=== PATIENT | male | born 1965 | race African-American/Black ===

== ENCOUNTER 2017-07-07 15:28 | Emergency (ER) | payer SELFPAY ==
[2017-07-07 17:55] LABS: ABSOLUTE BASOPHILS # (AUTO) 0.1 10^3/uL (0.0-0.2); ABSOLUTE EOSINOPHILS # (AUTO) 0.1 10^3/uL (0.0-0.6); ABSOLUTE LYMPHOCYTES (AUTO) 1.8 10^3/uL (0.5-4.7); ABSOLUTE MONOCYTES (AUTO) 0.4 10^3/uL (0.1-1.4); ABSOLUTE NEUT (AUTO) 6.9 10^3/uL (1.7-8.2); BASOPHILS % (AUTO) 1.5 % (0-2); EOSINOPHILS % (AUTO) 0.6 % (0-6); HEMATOCRIT 41.4 % (37.9-51.0); LYMPHOCYTES % (AUTO) 19.4 % (13-45); MEAN CORPUSCULAR HEMOGLOBIN 31.9 pg (27.0-33.4); MEAN CORPUSCULAR HGB CONC 33.8 g/dL (32.0-36.0); MEAN CORPUSCULAR VOLUME 94 fl (80-97); MONOCYTES % (AUTO) 4.6 % (3-13); PLATELET COUNT 353 10^3/uL (150-450); RED BLOOD COUNT 4.39 10^6/uL (4.35-5.55); RED CELL DISTRIBUTION WIDTH 13.4 % (11.5-14.0); SEGMENTED NEUTROPHILS % (AUTO) 73.9 % (42-78); TOTAL CELLS COUNTED % (AUTO) 100 %; WHITE BLOOD COUNT 9.3 10^3/uL (4.0-10.5)
[2017-07-07 18:13] LABS: BLOOD UREA NITROGEN 9 mg/dL (7-20); CALCIUM 10.2 mg/dL (8.4-10.2); GLUCOSE 83 mg/dL (75-110)
[2017-07-07 18:14] LABS: ALANINE AMINOTRANSFERASE 25 U/L (21-72); ALBUMIN 4.5 g/dL (3.5-5.0); ALKALINE PHOSPHATASE 66 U/L (38-126); ANION GAP 11 (5-19); ASPARTATE AMINO TRANSFERASE 28 U/L (17-59); BILIRUBIN,DIRECT 0.4 mg/dL (0.0-0.4); BILIRUBIN,TOTAL 0.5 mg/dL (0.2-1.3); CARBON DIOXIDE 25 mmol/L (22-30); CHLORIDE 108 mmol/L (98-107); LIPASE 158.5 U/L (23-300); POTASSIUM 4.4 mmol/L (3.6-5.0); SODIUM 143.6 mmol/L (137-145); TOTAL PROTEIN 7.7 g/dL (6.3-8.2)
--- NOTE | 2017-07-07 18:48 | ER Document Report ---
ED General - General Chief Complaint: Abdominal Pain Stated Complaint: ABDOMINAL PAIN Time Seen by Provider: 07/07/17 17:26 Mode of Arrival: Ambulatory Information source: Patient Notes: Patient states for 2 weeks he has had "growling" in the center of his abdomen after he is done eating. It is worse with eating and better without eating. It is intermittent. It is mild to moderate. He states he is concerned that he may have an ulcer. He states he does drink and smoke daily. No vomiting no diarrhea. No rashes. The pain does not radiate. TRAVEL OUTSIDE OF THE [place] IN LAST 30 DAYS: No - Related Data Allergies/Adverse Reactions: No Known Allergies Allergy (Verified 07/07/17 17:12) Past Medical History - General Information source: Patient - Social History Smoking Status: Current Every Day Smoker Chew tobacco use (# tins/day): No Frequency of alcohol use: Heavy Drug Abuse: None Family History: Reviewed & Not Pertinent Patient has suicidal ideation: No Patient has homicidal ideation: No Renal/ Medical History: Denies: Hx Peritoneal Dialysis Past Surgical History: Reports: Hx Orthopedic Surgery - left shoulder Review of Systems - Review of Systems Constitutional: denies: Chills, Fever Cardiovascular: denies: Chest pain, Palpitations Respiratory: denies: Cough, Short of breath -: Yes All other systems reviewed and negative Physical Exam - Vital signs Vitals: Temp Pulse Resp BP Pulse Ox 98.7 F 92 18 117/70 98 07/07/17 15:52 07/07/17 15:52 07/07/17 15:52 07/07/17 15:52 07/07/17 15:52 Interpretation: Normal - General General appearance: Appears well, Alert - HEENT Head: Normocephalic, Atraumatic Eyes: Normal Pupils: PERRL - Respiratory Respiratory status: No respiratory distress Chest status: Nontender Breath sounds: Normal Chest palpation: Normal - Cardiovascular Rhythm: Regular Heart sounds: Normal auscultation Murmur: No - Abdominal Inspection: Normal Distension: No distension Bowel sounds: Normal Tenderness: Tender, Other - Patient has mild epigastric tenderness to palpation. No surgical abdominal signs. Organomegaly: No organomegaly - Back Back: Normal, Nontender - Extremities General upper extremity: Normal inspection, Nontender, Normal color, Normal ROM , Normal temperature General lower extremity: Normal inspection, Nontender, Normal color, Normal ROM , Normal temperature, Normal weight bearing. No: Pamela's sign - Neurological Neuro grossly intact: Yes Cognition: Normal Orientation: AAOx4 Ora Coma Scale Eye Opening: Spontaneous [place] Coma Scale Verbal: Oriented [place] Coma Scale Motor: Obeys Commands Ora Coma Scale Total: 15 Speech: Normal Motor strength normal: LUE, RUE, LLE, RLE Sensory: Normal - Psychological Associated symptoms: Normal affect, Normal mood - Skin Skin Temperature: Warm Skin Moisture: Dry Skin Color: Normal Course - Vital Signs Vital signs: Temp Pulse Resp BP Pulse Ox 98.7 F 92 18 117/70 98 07/07/17 15:52 07/07/17 15:52 07/07/17 15:52 07/07/17 15:52 07/07/17 15:52 - Laboratory Result Diagrams: 07/07/17 17:40 07/07/17 17:40 Laboratory results interpreted by me: 07/07/17 17:40 Chloride 108 H Discharge - Discharge Clinical Impression: Epigastric pain Condition: Stable Disposition: HOME, SELF-CARE Instructions: Abdominal Pain ([facility]), Reflux Disease (GERD) ([facility]), Chronic Alcoholism ([facility]) Additional Instructions: Call your primary doctor as soon as possible to arrange follow-up Prescriptions: Sucralfate [Carafate Susp 1 Gm/10 Ml Udcup] 1 gm PO QID 14 Days udc
[2017-07-07 19:43] VITALS: BP 142/90
== END 2017-07-07 19:47 | disposition home or self-care (01) ==
LOC: ER 15:28
DX: R10.13 Epigastric pain (principal); F17.200 Nicotine dependence, unspecified, uncomplicated
CPT/HCPCS: 36415; 80053; 83690; 85025; 99284

== ENCOUNTER 2017-09-07 22:58 | Emergency (ER) | payer SELFPAY ==
[2017-09-08] MEDS ORDERED: DIPH/PERTUSS(ACELL)/TETANUS VAC/PF 0.5 ML SYR (>=10YO) IM ONE (00:59)
[2017-09-08] MEDS ORDERED: LIDOCAINE 1% INJ-PF (10 MG/ML) 30 ML SDV INJ ONE ×2 (01:00→06:46)
--- NOTE | 2017-09-08 01:53 | RADIOLOGY REPORT (SQ) ---
EXAM DESCRIPTION: CT MAXILLOFACIAL WITHOUT IV CONTRAST CLINICAL HISTORY: 51 years Male, fall with left side facial injuries Comparison: None. Technique: No contrast. Coronal and sagittal reformat. This exam was performed according to our departmental dose-optimization program, which includes automated exposure control, adjustment of the mA and/or kV according to patient size and/or use of iterative reconstruction technique.[facility]: Dose Right [facility]: CareDose [facility]: Dose Right [facility]: Teradose 4D [facility]: Morizon LIMITATIONS: None. Findings: Small right mucosal thickening. Facial bones including orbits, nasal bone, paranasal sinuses, and pterygoid plates appear otherwise intact. Patent ostiomeatal units. Unremarkable partially visualized inferior cranium, temporal bone, and upper neck. IMPRESSION: No acute findings.
--- NOTE | 2017-09-08 01:54 | RADIOLOGY REPORT (SQ) ---
EXAM DESCRIPTION: CT HEAD WITHOUT IV CONTRAST CLINICAL HISTORY: 51 years Male, fall COMPARISON: None. TECHNIQUE: No contrast. Coronal and sagittal reformat. This exam was performed according to our departmental dose-optimization program, which includes automated exposure control, adjustment of the mA and/or kV according to patient size and/or use of iterative reconstruction technique. FINDINGS: No hemorrhage or infarct. No mass, mass effect, or midline shift. Brain and extra-axial structures appear intact. IMPRESSION: Normal CT of the head.
--- NOTE | 2017-09-08 01:55 | RADIOLOGY REPORT (SQ) ---
EXAM DESCRIPTION: CT CERVICAL SPINE WITHOUT IV CONTRAST CLINICAL HISTORY: 51 years Male, fall Comparison: None. Technique: No contrast. Coronal and sagittal reformat. This exam was performed according to our departmental dose-optimization program, which includes automated exposure control, adjustment of the mA and/or kV according to patient size and/or use of iterative reconstruction technique.[facility]: Dose Right [facility]: CareDose [facility]: Dose Right [facility]: Teradose 4D [facility]: [employer] LIMITATIONS: None. Findings: Mild disc desiccation between the C5 and C7 levels Normal alignment. Normal curvature. No fracture. Normal vertebral heights. Subpleural cysts at the lung apices. Partially imaged nuchal soft tissues, inferior cranium, and upper thorax appear otherwise grossly intact. IMPRESSION: No acute findings.
[2017-09-08] MEDS ORDERED: KETOROLAC TROMETHAMINE 60 MG/2 ML SDV IM ONE (02:52)
--- NOTE | 2017-09-08 03:35 | RADIOLOGY REPORT (SQ) ---
EXAM DESCRIPTION: XR HIP 2 OR MORE VIEWS CLINICAL HISTORY: 51 years Male, fall right hip pain COMPARISON: None. Findings: Bones, joints, and soft tissues of the XR RIGHT HIP 2 VIEWS appear intact. Atherosclerosis. IMPRESSION: No acute findings.
[2017-09-08] MEDS ORDERED: CEPHALEXIN 500 MG CAPSULE PO ONE ×2 (04:13→06:48)
--- NOTE | 2017-09-08 04:23 | ER Document Report ---
ED General - General Chief Complaint: Laceration Stated Complaint: FALL/FACIAL INJURY Time Seen by Provider: 09/08/17 00:58 Mode of Arrival: Ambulatory Information source: Patient Notes: 51-year-old male presents with complaint of fall injury. Patient reports that he was walking home from the store when he fell into a ditch that had rocks in the bottom of it. Patient has multiple abrasions to his face as well as two lacerations. Patient also complaining of right hip pain. Patient reports that his tetanus shot is not up-to-date. Patient denies any loss of consciousness however patient does endorse that he has had alcohol tonight. TRAVEL OUTSIDE OF THE [place] IN LAST 30 DAYS: No - Related Data Allergies/Adverse Reactions: No Known Allergies Allergy (Verified 07/07/17 17:12) Past Medical History - General Information source: Patient - Social History Smoking Status: Current Every Day Smoker Frequency of alcohol use: Heavy Drug Abuse: None Lives with: Alone Family History: Reviewed & Not Pertinent Patient has suicidal ideation: No Patient has homicidal ideation: No Renal/ Medical History: Denies: Hx Peritoneal Dialysis Past Surgical History: Reports: Hx Orthopedic Surgery - left shoulder Review of Systems - Review of Systems Constitutional: No symptoms reported EENT: No symptoms reported Cardiovascular: No symptoms reported Respiratory: No symptoms reported Gastrointestinal: No symptoms reported Genitourinary: No symptoms reported Male Genitourinary: No symptoms reported Musculoskeletal: No symptoms reported Skin: See HPI Hematologic/Lymphatic: No symptoms reported Neurological/Psychological: See HPI Physical Exam - Vital signs Vitals: Temp Pulse Resp BP Pulse Ox 97.9 F 70 18 133/89 H 95 09/07/17 23:35 09/07/17 23:35 09/07/17 23:35 09/07/17 23:35 09/07/17 23:35 - Notes Notes: PHYSICAL EXAMINATION: GENERAL: Well-appearing, well-nourished and in no acute distress. HEAD: Atraumatic, normocephalic. EYES: Pupils equal round and reactive to light, extraocular movements intact, sclera anicteric, conjunctiva are normal. ENT: Nares patent, oropharynx clear without exudates. Moist mucous membranes. NECK: Normal range of motion, supple without lymphadenopathy LUNGS: Breath sounds clear to auscultation bilaterally and equal. No wheezes rales or rhonchi. HEART: Regular rate and rhythm without murmurs ABDOMEN: Soft, nontender, nondistended abdomen. No guarding, no rebound. No masses appreciated. Musculoskeletal: Pain on palpation to right hip. Normal range of motion, no pitting or edema. No cyanosis. NEUROLOGICAL: Cranial nerves grossly intact. Normal speech, normal gait. Normal sensory, motor exams PSYCH: Normal mood, normal affect. SKIN: Approximate 3 cm laceration to face just lateral to left eye, 2 cm laceration to left upper eyelid. Multiple abrasions scattered across face. Multiple abrasions to bilateral arms. Course - Re-evaluation Re-evalutation: 51-year-old male with fall injury. Patient has multiple abrasions and lacerations to his face and is also complaining of right hip pain. Patient reports that he has been drinking alcohol tonight. Will order head CT, C-spine CT as well as facial bone CT and right hip x-ray. Patient has remained easily arousable throughout his stay. Patient continues to report that he was drinking alcohol tonight. All CT scans are negative for any acute fractures or injuries. X-ray is negative for any acute hip injury. Lacerations repaired using sterile technique as outlined in procedure notes. Patient's tetanus updated. Patient placed on antibiotics for infection prophylaxis. Patient does verbalize understanding of plan of care. Patient is going to call a taxi to bring him home. - Vital Signs Vital signs: Temp Pulse Resp BP Pulse Ox 98.4 F 72 18 151/76 H 95 09/08/17 04:57 09/08/17 04:57 09/08/17 04:57 09/08/17 04:57 09/08/17 04:57 Procedures - Laceration/Wound Repair left outer eye Wound length (cm): 3 Wound's Depth, Shape: Superficial Anesthetic type: 1% Lidocaine Volume Anesthetic (mLs): 2 Wound explored: Clean Irrigated w/ Saline (mLs): 20 Wound Repaired With: Sutures, Procious, Steri-strips, Dermabond, Eusebio drain, Thrombi pad, Other Suture Size/Type: 5:0 Number of Sutures: 8 Layer Closure?: No Post-procedure wound care: Sterile dressing applied Adult Head Front/Back picture: 1 - 3 cm lac repaired with 8 sutures left eye lid Wound length (cm): 2 Wound's Depth, Shape: Superficial Anesthetic type: 1% Lidocaine Volume Anesthetic (mLs): 1 Wound explored: Clean Irrigated w/ Saline (mLs): 10 Wound Repaired With: Sutures Suture Size/Type: 6:0 Number of Sutures: 5 Post-procedure wound care: Sterile dressing applied Adult Head Front/Back picture: 1 - 2cm lac repaired with 5 sutures Discharge - Discharge Clinical Impression: Fall Qualifiers: Encounter type: initial encounter Qualified Code(s): W19.XXXA - Unspecified fall, initial encounter Laceration of face Qualifiers: Encounter type: initial encounter Qualified Code(s): S01.81XA - Laceration without foreign body of other part of head, initial encounter Laceration, eyelid, left Qualifiers: Encounter type: initial encounter Qualified Code(s): S01.112A - Laceration without foreign body of left eyelid and periocular area, initial encounter Condition: Stable Disposition: HOME, SELF-CARE Instructions: Antibiotic Ointment Protection ([facility]), Laceration Care ([facility]), Oral Narcotic Medication ([facility]), Soap Cleansing ([facility]), Tetanus Immunization Given ([facility]) Additional Instructions: Laceration Care Your laceration has been sutured to keep the skin edges aligned during healing. The time of suture removal depends on the nature and location of your cut. Please follow the care instructions the doctor has outlined for you and return for further care, according to the schedule you've been given. Keep the wound and dressing clean. Unless you were told otherwise, you may shower daily, blotting the wound dry with a clean, unused towel. At other times, If the dressing gets wet or blood soaked, remove it and blot the wound dry, then reapply a new dressing. Unless you were instructed otherwise, dressings should be changed at least daily. If any signs of infection occur (swelling, redness, increasing tenderness, red streaks, tender lumps in the armpit or groin above the laceration, or fever) , see the doctor immediately. Abrasions of the Face A scraping injury of the face can result in scarring. While not as prone to infection as abrasions elsewhere, a facial abrasion requires careful care to minimize scar. Usually the abrasions cannot be dressed. Standard treatment is to apply a thin coating of an antibiotic ointment to the scrapes frequently (two or three times a day) until the abrasions are healed. Wash the wound daily with a mild soap (like Phisoderm) to remove excess crusting and debris. Stay away from dirt and irritating chemicals. Complete healing may take anywhere from ten days to a month. The healing time depends on the depth of the abrasion and on the amount of crushing of underlying tissues which occurred. Once healing is complete, use a sunscreen on the area for about six months. If any signs of infection occur (swelling, redness, increasing tenderness, red streaks, profuse purulent drainage from the abrasion, tender lumps in the neck on the side of the abrasion, or fever), see the doctor immediately. Please return for wound recheck in 3-5 days. The sutures on your face will need to be removed at this time. Please return to the emergency department if he does develop any signs of infection such as redness, swelling, increasing tenderness, excessive drainage from the laceration sites or any other symptoms that is concerning to you. Please take the antibiotics as prescribed to help prevent infection. Please use Tylenol and/or ibuprofen for pain. Prescriptions: Cephalexin Monohydrate [Keflex 500 mg Capsule] 500 mg PO Q6H 5 Days #20 capsule
[2017-09-08 04:59] VITALS: BP 151/76
[2017-09-08] MEDS ORDERED: AZITHROMYCIN 1 GM SUSP PACKET PO ONE (06:47)
== END 2017-09-08 04:57 | disposition home or self-care (01) ==
LOC: ER 22:58
PROC: 08QPXZZ Repair Left Upper Eyelid, External Approach (ICD-10-PCS; principal; 2017-09-07)
PROC: 0HQ1XZZ Repair Face Skin, External Approach (ICD-10-PCS; 2017-09-07)
DX: S01.81XA Laceration without foreign body of other part of head, initial encounter (principal); S01.112A Laceration without foreign body of left eyelid and periocular area, initial encounter; M25.551 Pain in right hip; W17.89XA Other fall from one level to another, initial encounter; Y92.480 Sidewalk as the place of occurrence of the external cause; F17.200 Nicotine dependence, unspecified, uncomplicated; Z23 Encounter for immunization
CPT/HCPCS: 99284; 96372; 90471; 73502; 70450; 70486; 72125; 90715; 12013; J1885; J3490

== ENCOUNTER 2017-09-11 11:46 | Emergency (ER) | payer SELFPAY ==
[2017-09-11 12:04] VITALS: BP 165/100
--- NOTE | 2017-09-11 13:40 | ER Document Report ---
ED Suture/Wound Recheck - General Chief Complaint: Suture Removal Stated Complaint: STITCH REMOVAL Time Seen by Provider: 09/11/17 13:26 Mode of Arrival: Ambulatory Information source: Patient Notes: 51-year-old male presented ED for removal of sutures from his eyebrow and beside his left eye. He was seen on 09/07/2017 for fall with lacerations. He states he was given a prescription for antibiotics. He states he is not having any pain at this time. The incisions are healing well. They both have scabs on them. There is no signs of redness inflammation or discharge. TRAVEL OUTSIDE OF THE [place] IN LAST 30 DAYS: No - HPI Treated in ED (days ago): 5 Previous ED treatment: Laceration repair Antibiotics given previously: Prescription Quality of pain: No pain Severity: None Pain Level: Denies Context: Injury Symptoms since procedure: No complaints Exacerbated by: Denies Relieved by: Denies - Related Data Allergies/Adverse Reactions: No Known Allergies Allergy (Verified 09/11/17 11:47) Past Medical History - General Information source: Patient - Social History Smoking Status: Current Every Day Smoker Cigarette use (# per day): Yes - 1/2 ppd Chew tobacco use (# tins/day): No Smoking Education Provided: Yes - 4 min Frequency of alcohol use: Heavy Drug Abuse: None Lives with: Alone Family History: Reviewed & Not Pertinent Patient has suicidal ideation: No Patient has homicidal ideation: No - Past Medical History Cardiac Medical History: Reports: None Pulmonary Medical History: Reports: None EENT Medical History: Reports: None Neurological Medical History: Reports: None Endocrine Medical History: Reports: None Renal/ Medical History: Reports: None Malignancy Medical History: Reports None GI Medical History: Reports: Hx Gastroesophageal Reflux Disease Musculoskeltal Medical History: Reports None Skin Medical History: Reports None Psychiatric Medical History: Reports: None Traumatic Medical History: Reports: None Infectious Medical History: Reports: None Past Surgical History: Reports: Hx Orthopedic Surgery - left shoulder - Immunizations Immunizations up to date: Yes Review of Systems - Review of Systems Constitutional: No symptoms reported EENT: No symptoms reported Cardiovascular: No symptoms reported Respiratory: No symptoms reported Gastrointestinal: No symptoms reported Genitourinary: No symptoms reported Male Genitourinary: No symptoms reported Musculoskeletal: No symptoms reported Skin: No symptoms reported Hematologic/Lymphatic: No symptoms reported Neurological/Psychological: No symptoms reported Physical Exam - Vital signs Vitals: Temp Pulse Resp BP Pulse Ox 98.6 F 103 H 16 165/100 H 98 09/11/17 12:09/11/17 12:09/11/17 12:09/11/17 12:01 09/11/17 12:01 Interpretation: Normal - General General appearance: Appears well, Alert - HEENT Head: Normocephalic, Atraumatic Eyes: Normal Pupils: PERRL - Respiratory Respiratory status: No respiratory distress Chest status: Nontender Breath sounds: Normal Chest palpation: Normal - Cardiovascular Rhythm: Regular Heart sounds: Normal auscultation Murmur: No - Abdominal Inspection: Normal Distension: No distension Bowel sounds: Normal Tenderness: Nontender Organomegaly: No organomegaly - Back Back: Normal, Nontender - Extremities General upper extremity: Normal inspection, Nontender, Normal color, Normal ROM , Normal temperature General lower extremity: Normal inspection, Nontender, Normal color, Normal ROM , Normal temperature, Normal weight bearing. No: Pamela's sign - Neurological Neuro grossly intact: Yes Cognition: Normal Orientation: AAOx4 Ora Coma Scale Eye Opening: Spontaneous [place] Coma Scale Verbal: Oriented [place] Coma Scale Motor: Obeys Commands [place]ra Coma Scale Total: 15 Speech: Normal Motor strength normal: LUE, RUE, LLE, RLE Sensory: Normal - Psychological Associated symptoms: Normal affect, Normal mood - Skin Skin Temperature: Warm Skin Moisture: Dry Skin Color: Normal Skin irregularity: other - Healing laceration Location of irregularity: Face Course - Vital Signs Vital signs: Temp Pulse Resp BP Pulse Ox 98.6 F 103 H 16 165/100 H 98 09/11/17 12:09/11/17 12:01 09/11/17 12:01 09/11/17 12:09/11/17 12:01 Discharge - Discharge Clinical Impression: Encounter for removal of sutures Condition: Stable Disposition: HOME, SELF-CARE Instructions: Suture Removal Additional Instructions: SOAP CLEANSING: Gently wash the wound daily using a mild soap (like Ivory, Phisoderm, Neutrogena). Use warm water, rubbing gently until all debris, ooze, and crusting have been washed from the wound. Allow to dry briefly (about 10 minutes) after cleaning. Repeat this cleansing at least three times a day for the first two days and then once or twice a day. ANTIBIOTIC OINTMENT PROTECTION: Your wounds are such that dressing them is not practical or optional. After cleansing, you should apply a thin coating of antibiotic ointment ( Bacitracin, not Neosporin) to the wounds at least three times daily. This lessens infection risk, and may decrease the amount of scarring. Use a q-tip or dull butter knife, not your finger, to apply this ointment. Any debris or ooze which builds up in the ointment should be gently rubbed off with a sterile gauze pad. Harder crusting may need to be gently scrubbed off with a clean wash cloth with soap and warm water, perhaps applying a warm, wet wash cloth to the wound for ten minutes first. Development of redness, severe itching, or blistering may mean allergy to the ointment. See the doctor. FOLLOW-UP CARE: If you have been referred to a physician for follow-up care, call the physician s office for an appointment as you were instructed or within the next two days. If you experience worsening or a significant change in your symptoms, notify the physician immediately or return to the Emergency Department at any time for re-evaluation. Forms: Elevated Blood Pressure, Smoking Cessation Education, Return to Work
== END 2017-09-11 13:46 | disposition home or self-care (01) ==
LOC: ER 11:46
DX: S01.112D Laceration without foreign body of left eyelid and periocular area, subsequent encounter (principal); W19.XXXD Unspecified fall, subsequent encounter; F17.210 Nicotine dependence, cigarettes, uncomplicated; Z71.6 Tobacco abuse counseling
CPT/HCPCS: 99406